=== PATIENT | female | born 1955 | race Caucasian/White ===

== ENCOUNTER 2022-09-01 11:17 | Observation (INO) | payer MEDICARE, BC, SELFPAY ==
[2022-09-01] VITALS (14 sets, daily range): BP systolic 103–154; BP diastolic 66–98; PULSE 50–67; RESP 12–24; TEMP 36.4–36.6; O2SAT 92–97; BMI 34.5; BMI 35.7
--- NOTE | 2022-09-01 11:35 | CRLHL7_ITS ---
For Patients: As a result of the Cures Act, medical imaging exams and procedure reports are released immediately into your electronic medical record. You may view this report before your referring provider. If you have questions, please contact your health care provider. INDICATION: Fall, head injury TECHNIQUE: CT cervical spine without contrast. COMPARISON: None FINDINGS: Vertebrae: Alignment is normal. There are no fractures or suspicious bony lesions. Discs and facet joints: Disc space narrowing and spurring C5-6 and C6-7. Facet degeneration on the left at C7-T1. Extraspinal findings: Prevertebral soft tissues, visualized airway, and visualized lungs are unremarkable. IMPRESSION: No cervical spine fracture. Please note that all CT scans at this facility use dose modulation, iterative reconstruction, and/or weight-based dosing when appropriate to reduce radiation dose to as low as reasonably achievable. Dictated by Toño Grimes MD @ 09/01/2022 12:09:24 PM (Electronically Signed)
--- NOTE | 2022-09-01 11:35 | CRLHL7_ITS ---
For Patients: As a result of the Century Cures Act, medical imaging exams and procedure reports are released immediately into your electronic medical record. You may view this report before your referring provider. If you have questions, please contact your health care provider. INDICATION: FALL, HEAD INJURY COMPARISON: none TECHNIQUE: A CT volumetric acquisition was performed of the brain without IV contrast. Please note that all CT scans at this facility use dose modulation, iterative reconstruction, and/or weight-based dosing when appropriate to reduce radiation dose to as low as reasonably achievable. FINDINGS: The CT images reveal a normal appearance of the cerebral ventricles and basal cisterns. There is no evidence of intracranial hemorrhage, tissue infarction or mass effect. The mastoid air cells and middle ear cavities are clear. The calvarium appears intact. There is normal aeration of the visualized paranasal sinuses. IMPRESSION: Negative head CT. Please note that all CT scans at this facility use dose modulation, iterative reconstruction, and/or weight-based dosing when appropriate to reduce radiation dose to as low as reasonably achievable. Dictated by Toño Grimes MD @ 09/01/2022 12:06:05 PM (Electronically Signed)
--- NOTE | 2022-09-01 12:02 | ED_ITS ---
HPI - Head Injury General Date Seen: 09/01/22 Chief complaint: Head Injury/Pain Stated complaint: Fall/weakness Time Seen by Provider: 09/01/22 11:29 Source: patient Mode of arrival: ambulatory Limitations: no limitations History of Present Illness HPI Narrative: Patient is delightful 66-year-old female who presents here for evaluation of a fall, she had loss of consciousness when she went from the kitchen into the cooler at [employer] , she turned her head felt the room was closing in getting dark, next thing know she woke up on the floor. She is only there for a couple seconds, she had people with her. No jerking motions, do not feel or heart racing there is no chest pain, and she has had this happen to her before, urine her physician are currently doing a workup for this. She has had previous neuro imaging with no findings. She currently feels well maybe a little bit nauseous when she moves her head, no real headache associated with this, and she cannot feel bump on her head. Denies any chest pain shortness of breath fevers chills or sweats and felt well before this. 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 Complaint: head injury and fall Onset (ago): minute(s) Mechanism of Injury: work related injury Place: work Loss of Consciousness: yes and unsure Location of injury: frontal and parietal Severity: mild Radiation: none Other Injuries: none Associated symptoms: denies other symptoms Related Data Home Medications Medication Instructions Recorded Confirmed amlodipine 10 mg tablet mg 09/01/22 cyanocobalamin (vitamin B-12) mcg 09/01/22 1,000 mcg/mL injection solution lisinopril 10 mg tablet mg 09/01/22 sertraline 100 mg tablet mg 09/01/22 Review of Systems Status of ROS: Reports: 10 or more systems reviewed and unremarkable except as noted in History and below PFSH PFS Social History Smoking Status: Never smoker Do you use any of these nicotine containing products: None Second hand tobacco smoke exposure: No How often do you have a drink containing alcohol: never How often do you have six or more drinks on one occasion: Never AUDIT-C Alcohol total score: 0 Non-prescribed substance use: denies use service: No Exam Narrative: Exam Narrative: Patient is peaking normally, problem with slurring words, oriented x3. Head eyes ears nose and throat exam show equal pupils, no scleral icterus, extraocular muscles are normal, no facial droop, speech is normal, trachea normal and midline. Thyroid normal midline palpable not enlarged. Chest shows symmetrical rise bilaterally, normal auscultation with no wheezes, no increased work of breathing, no overt bruising or lesions seen, no tenderness is noted on auscultation. Heart sounds normal with no S3-S4 no murmurs clicks or gallops. Abdomen shows no obvious masses or hepatosplenomegaly, no organomegaly, bowel sounds are normal in all quadrants. No tenderness is noted also in all quadrants. Upper and lower extremities show normal power, normal range of motion, pulses are normal, sensations normal, fine motor movements are normal, pelvis is stable to rocking. Cervical spine shows normal range of motion, and palpably not tender. Thoracic spine shows normal range of motion, and palpably not tender, lumbar spine shows no tenderness to palpation percussion and is otherwise normal range of motion. Skin shows no rashes, petechiae or eccymosis. Const: Vital Signs, click to edit/add: Vital Signs - 24 hr 09/01/22 11:22 09/01/22 11:30 Temperature 97.5 F L Pulse Rate [Right Pulse Oximeter] 63 60 Respiratory Rate 18 18 Blood Pressure [Ri ght Upper Arm] 139/74 130/82 Pulse Oximetry 97 96 Oxygen Delivery Me thod Room Air Room Air Course Course Hospital Course: Second troponin was 0.03, this prompted a call consultation with from [facility], he suggested chest CT, to exclude pulmonary embolism, admission overnight, and echo in the morning given the history of syncope, if the troponin keeps rising then he would ask us to call them back, but he thinks, that it probably will stabilize. I discussed this with the patient and her son, and also the inpatient physician who accepted her. Vital Signs Vital signs: Initial Vital Signs Temperature 97.5 F L 09/01/22 11:22 Temperature Source Temporal Artery Scan 09/01/22 11:22 Pulse Rate 63 09/01/22 11:22 Respiratory Rate 18 09/01/22 11:22 Blood Pressure 139/74 09/01/22 11:22 Blood Pressure Mean 95 09/01/22 11:22 Blood Pressure Position Sitting 09/01/22 11:22 Pulse Oximetry 97 09/01/22 11:22 Oxygen Delivery Method 09/01/22 11:22 Vital Signs Temperature 97.5 F L 09/01/22 11:22 Pulse Rate 63 09/01/22 11:22 Respiratory Rate 18 09/01/22 11:22 Blood Pressure 139/74 09/01/22 11:22 Pulse Oximetry 97 09/01/22 11:22 Oxygen Delivery Method 09/01/22 11:22 Temperature 97.5 F L 09/01/22 11:22 Pulse Rate 60 09/01/22 11:30 Respiratory Rate 18 09/01/22 11:30 Blood Pressure 130/82 09/01/22 11:30 Pulse Oximetry 96 09/01/22 11:30 Oxygen Delivery Method 09/01/22 11:30 MDM - Head Injury MDM Narrative Medical decision making narrative: Life-threatening differential diagnosis is considered include: Subarachnoid hemorrhage, subdural hemorrhage, epidural hemorrhage. Other differential diagnosis considered include concussion, closed head injury, or neck fracture. Medical Records Attestation: I reviewed the patient's medical records. Lab Data Attestation: I reviewed the patient's lab results. Labs: Lab Results 09/01/22 09/01/22 09/01/22 Range/Units 12:15 12:24 12:24 WBC 4.62 (4.50-11.00) K/uL RBC 3.95 L (4.00-5.20) m/uL Hgb 12.2 (12.0-16.0) gm/dL Hct 36.9 (33.0-51.0) % MCV 93 (80-100) fL MCH 31 (26-34) pg MCHC 33 (32-36) gm/dL RDW Coeff of Robert 12.8 (11.5-15.5) % Plt Count 216 (140-440) K/uL Neut % (Auto) 76.2 H (42.0-72.0) % Lymph % (Auto) 15.4 L (20-44) % [place] % (Auto) 6.5 (0.0-11.0) % Eos % (Auto) 1.5 (0.0-7.0) % Baso % (Auto) 0.2 (0.0-3.0) % Neut # (Auto) 3.50 (1.7-7.0) K/uL Lymph # (Auto) 0.70 L (0.90-2.90) K/uL [place] # (Auto) 0.30 (0.00-0.90) K/UL Eos # (Auto) 0.07 (0.00-0.50) K/uL Baso # (Auto) 0.01 (0.00-0.30) K/uL Abs Immat Gran (auto) 0.01 (0.00-0.30) K/uL Imm/Tot Granulo (auto) 0.2 % D-Dimer Quant (PE/DVT) 0.66 H (0.00-0.50) ug/ml Sodium (135-149) mmol/L Potassium (3.6-5.1) mmol/L Chloride (96-114) mmol/L Carbon Dioxide (20-32) mmol/L BUN (7-30) mg/dL Creatinine (0.5-1.5) mg/dL Estimated Creat Clear Estimated GFR ml/min Glucose (60-115) mg/dL Calcium (8.4-10.6) mg/dL SARS-CoV-2 (PCR) Negative SARS-CoV-2 (Negative) Influenza Type A (PCR) Negative PCR FLU A (Negative) Influenza Type B (PCR) Negative PCR FLU B (Negative) RSV (PCR) Negative PCR RSV (Negative) POC Troponin I (0.01-0.04) ng/ml 09/01/22 09/01/22 09/01/22 Range/Units 12:24 12:24 14:35 WBC (4.50-11.00) K/uL RBC (4.00-5.20) m/uL Hgb (12.0-16.0) gm/dL Hct (33.0-51.0) % MCV (80-100) fL MCH (26-34) pg MCHC (32-36) gm/dL RDW Coeff of Robert (11.5-15.5) % Plt Count (140-440) K/uL Neut % (Auto) (42.0-72.0) % Lymph % (Auto) (20-44) % [place] % (Auto) (0.0-11.0) % Eos % (Auto) (0.0-7.0) % Baso % (Auto) (0.0-3.0) % Neut # (Auto) (1.7-7.0) K/uL Lymph # (Auto) (0.90-2.90) K/uL [place] # (Auto) (0.00-0.90) K/UL Eos # (Auto) (0.00-0.50) K/uL Baso # (Auto) (0.00-0.30) K/uL Abs Immat Gran (auto) (0.00-0.30) K/uL Imm/Tot Granulo (auto) % D-Dimer Quant (PE/DVT) (0.00-0.50) ug/ml Sodium 139 (135-149) mmol/L Potassium 4.7 (3.6-5.1) mmol/L Chloride 108 (96-114) mmol/L Carbon Dioxide 25 (20-32) mmol/L BUN 28 (7-30) mg/dL Creatinine 0.8 (0.5-1.5) mg/dL Estimated Creat Clear 47.79 Estimated GFR 81 ml/min Glucose 98 (60-115) mg/dL Calcium 9.7 (8.4-10.6) mg/dL SARS-CoV-2 (PCR) (Negative) Influenza Type A (PCR) (Negative) Influenza Type B (PCR) (Negative) RSV (PCR) (Negative) POC Troponin I 0.00 L 0.03 (0.01-0.04) ng/ml Imaging Data Chest x-ray: Attestation: I have reviewed the pertinent imaging results. My impression: Negative acute Radiologist's impression: Negative acute ECG Data Attestation: I personally reviewed and interpreted this ECG as follows: ECG interpretation date: 09/01/22 Interpretation: EKG showed normal sinus rhythm, there is some ST wave flattening inferiorly and laterally, which may be a normal variant otherwise no acute ST wave changes Follow-up EKG shows normal sinus rhythm, no acute ST wave changes are noted, ventricular rate 61 Discharge Plan Discharge Clinical Impression: Closed head injury, Syncope Patient Disposition: Admitted As Inpatient Prescriptions: No Action sertraline 100 mg tablet Label Comments: TAKE ONE TABLET BY MOUTH EVERY DAY amlodipine 10 mg tablet Label Comments: TAKE ONE TABLET BY MOUTH EVERY DAY cyanocobalamin (vitamin B-12) 1,000 mcg/mL solution Label Comments: INJECT 1ML INTRAMUSCULARLY EVERY 4 WEEKS. lisinopril 10 mg tablet Label Comments: TAKE ONE TABLET BY MOUTH EVERY DAY Follow Up/Referrals: Provider,Not a Local [Referring] -
[2022-09-01 12:36] LABS: Basophils Absolute Auto 0.01 K/uL (0.00-0.30); Basophils Percent Auto 0.2 % (0.0-3.0); Eosinophils Absolute Auto 0.07 K/uL (0.00-0.50); Eosinophils Percent Auto 1.5 % (0.0-7.0); Hematocrit 36.9 % (33.0-51.0); Hemoglobin* 12.2 gm/dL (12.0-16.0); Immature Granulocytes Abs Auto 0.01 K/uL (0.00-0.30); Immature Granulocytes Pct Auto 0.2 %; Lymphocytes Percent Auto 15.4 % (20-44); Mean Corpuscular HGB Conc 33 gm/dL (32-36); Mean Corpuscular Hemoglobin 31 pg (26-34); Mean Corpuscular Volume 93 fL (80-100); Monocytes Percent Auto 6.5 % (0.0-11.0); Neutrophils Percent Auto 76.2 % (42.0-72.0); Platelet Count* 216 K/uL (140-440); RDW Coefficient of Variation % 12.8 % (11.5-15.5); Red Blood Count 3.95 m/uL (4.00-5.20); White Blood Count* 4.62 K/uL (4.50-11.00)
[2022-09-01 12:37] LABS: Slide Review Reflex No
[2022-09-01 12:55] LABS: Chloride* 108 mmol/L (96-114); Potassium* 4.7 mmol/L (3.6-5.1); Sodium* 139 mmol/L (135-149)
[2022-09-01 12:58] LABS: Blood Urea Nitrogen* 28 mg/dL (7-30); Calcium* 9.7 mg/dL (8.4-10.6); Carbon Dioxide* 25 mmol/L (20-32); Creatinine* 0.8 mg/dL (0.5-1.5); D Dimer Quantitative* 0.66 ug/ml (0.00-0.50); Est. Creatinine Clearance* 47.79; Estimated Glomerular Filt Rate 81 ml/min; Glucose* 98 mg/dL (60-115)
[2022-09-01 13:00] LABS: PCR FLU A Negative PCR FLU A (Negative); PCR FLU B Negative PCR FLU B (Negative); PCR RSV Negative PCR RSV (Negative)
[2022-09-01 13:47] LABS: SARS PCR* Negative SARS-CoV-2 (Negative)
[2022-09-01 15:05] LABS: Troponin, Point-of-Care* 0.03 ng/ml (0.01-0.04)
--- NOTE | 2022-09-01 15:27 | CRLHL7_ITS ---
For Patients: As a result of the Century Cures Act, medical imaging exams and procedure reports are released immediately into your electronic medical record. You may view this report before your referring provider. If you have questions, please contact your health care provider. INDICATION: Syncope. TECHNIQUE: CT chest PE was acquired with 100 cc Omnipaque 350 IV contrast. COMPARISON: None. FINDINGS: Heart and vasculature: Contrast opacification of the pulmonary arterial tree is adequate. No sign of pulmonary embolism. Heart size is normal. Thoracic aorta and pulmonary artery are normal in caliber. Lungs and pleura: The lungs are clear. No pleural effusion or pneumothorax. No suspicious nodule. Lymph nodes/mediastinum: No mediastinal, hilar, or axillary adenopathy. Chest wall: No masses. 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 Gastric bypass postsurgical changes. Bones: Unremarkable for age. IMPRESSION: No pulmonary embolism. No acute findings within the chest. 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 Please note that all CT scans at this facility use dose modulation, iterative reconstruction, and/or weight-based dosing when appropriate to reduce radiation dose to as low as reasonably achievable. Dictated by Kevin King MD @ 09/01/2022 4:48:08 PM (Electronically Signed)
[2022-09-01] MEDS: 0.9 % SODIUM CHLORIDE 1000 ml 1,000 ML IV ×2 (15:38→16:32)
[2022-09-01] MEDS: ACETAMINOPHEN 500 MG TABLET 1000 MG PO ×2 (15:42→20:31)
--- NOTE | 2022-09-01 16:58 | ED.NURSE ---
report to riley neal will go to [phone].
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
[2022-09-01 20:27] LABS: Troponin I* < 0.01 ng/mL (0.01-0.04)
--- NOTE | 2022-09-01 22:37 | PC.NURSE ---
Shift [id number]- Patient arrives to unit at approximately 1715. She admits to feeling dizzy/lightheaded intermittently, particularly with standing or sitting, though as she lies down, it subsides. She is up with SBA. She denies SOB or chest pain. She also states she has a headache- tylenol given- see eMAR. She appears restful this evening.
[2022-09-02] VITALS (12 sets, daily range): BP systolic 111–138; BP diastolic 68–96; PULSE 58–70; RESP 16–18; TEMP 36.6–36.9; O2SAT 91–98
--- NOTE | 2022-09-02 05:38 | PC.NURSE ---
Shift note: Pt is on observation, no headache or any neurological s/s related to the head injury observed. V/S WNL.Assist of 1 with walker and GB.
[2022-09-02] MEDS: ACETAMINOPHEN 500 MG TABLET 1000 MG PO ×3 (07:55→23:07)
[2022-09-02 08:51] LABS: Troponin I* < 0.01 ng/mL (0.01-0.04)
[2022-09-02] MEDS: ASPIRIN 81 MG TAB.CHEW PO (09:05)
[2022-09-02] MEDS: buPROPion XL 150 MG TABLET PO (09:05)
[2022-09-02] MEDS: lisinopriL 10 MG TABLET PO (09:06)
[2022-09-02] MEDS: SERTRALINE 100 MG TABLET PO (09:06)
[2022-09-02] MEDS: MULTIVITAMIN/MINERALS 1 TABLET 1 TAB PO (09:06)
[2022-09-02] MEDS: PROPRANOLOL 20 MG TABLET 40 MG PO (09:06)
[2022-09-02] MEDS: AMLODIPINE 10 MG TABLET PO (09:07)
--- NOTE | 2022-09-02 09:20 | CRLHL7_ITS ---
For Patients: As a result of the Century Cures Act, medical imaging exams and procedure reports are released immediately into your electronic medical record. You may view this report before your referring provider. If you have questions, please contact your health care provider. Indication: ataxia, head injury Technique: Noncontrast sagittal T1 weighted, axial T2 fast spin echo, FLAIR, SWI, and diffusion weighted images of the head. Comparison: CT 09/01/2022 Findings: Multiple scattered patchy foci of increased T2 signal in the subcortical white matter of both cerebral hemispheres. A punctate focus of susceptibility artifact in the right shena cruzito is nonspecific but may represent remote microhemorrhage. The ventricles, sulci and gyri are of normal size, shape and contour for age and degree of atrophy. No regions of restricted diffusion. Midline structures are centrally located. No convincing evidence of suspicious intra- or extra-axial fluid collections. Moderate right and mild left mastoid effusion. The orbits are unremarkable. Expected intracranial vascular flow voids are preserved. Findings discussed with Dr. Leon at 1:15 p.m. Impression: 1. No radiographic evidence of acute intracranial abnormalities. 2. Mild supratentorial white matter changes are non-specific but statistically most likely related to small vessel ischemic disease. 3. A punctate focus of susceptibility artifact in the right shena cruzito, without associated edema, is nonspecific and may represent a remote microhemorrhage. 4. Moderate right and mild left mastoid effusion. Dictated by Toño Severino MD @ 09/02/2022 1:16:11 PM (Electronically Signed)
--- NOTE | 2022-09-02 12:29 | P.IMPN_ITS ---
Progress Note: A&P Assessment and plan (1) Concussion: Problem details: I favor sequela of concussion as the primary cause for her persisting imbalance. Check MRI of the brain. PT and OT to evaluate. Status: Acute (2) Dizziness: Problem details: Appears to be a new problem. Probably due to concussion. Continue to evaluate. PT and OT. Status: Acute (3) Imbalance: Problem details: Sequela of concussion? Status: Acute (4) Hypertension: Problem details: Continue to cautiously taper blood pressure medications. At this point I doubt that hypotension is the cause of her spells and dizziness. Status: Acute (5) Nonspecific paroxysmal spell: Problem details: Problem present for almost a year with spells of profound weakness and diaphoresis. Cause for this is uncertain. She did not have the symptoms prior to her fall yesterday. Probably unrelated. Status: Acute Plan Obtain brain MRI. PT and OT to continue evaluate. Pending MRI will treat this as sequelae of concussion. Time Spent With Patient Total time spent: Total time spent today is 40 minutes, 30 minutes in coordination of care discussing with patient and other providers management of imbalance and head injury Subjective Date Seen: 09/02/22 Interval history: 66-year-old female admitted to the hospital for evaluation of dizziness, fall, head injury. Brief history: Patient reported she was generally doing well yesterday though she did report when she woke up she was feeling sluggish. 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 She was standing in a walk-in cooler and when she turned around she got dizzy and fell. She was lying on the floor unable to get up. She is brought here for evaluation. She had CT of the head and neck as well as chest which were unremarkable. Initial concern over syncope. Patient does not think she lost consciousness. She does report however today that she has persistent feeling of being unsteady on her feet. She reports not having any other recent illness other than feeling a little sluggish yesterday. She tells me today she has a little nausea. She has had no vomiting. No abdominal pain. She reports an adequate appetite. No bowel problems recently. Earlier this summer she did have anemia with rectal bleeding and had colonoscopy which was normal. She has had occasional episodes as an outpatient over the last 11 months where she has felt very weak and sweaty for a period of time this resolves spontaneously but she finds she has to lay down when this happens. She has had outpatient evaluation tests for evaluation of this including thyroid tests and cardiac monitoring. She has also been noted to be somewhat hypotensive and has had her blood pressure medicines decreased over this period of time. Exam Narrative: Exam Narrative: She is alert and pleasant and appears in no distress. Head is normal. Eyes normal. Oropharynx normal. No facial asymmetry. Respirations are clear to a uscultation. Cardiovascular: S1, S2, regular rate and rhythm. No murmur gallop or rub. Abdomen: Bowel sounds active. Abdomen is soft without tenderness or mass. Extremities are normal. She has no edema. Strength in all 4 extremities is 5/5 including finger extension, chemical tester strength, wrist and elbow flexion and extension and shoulder flexion and extension. Hip flexion, knee flexion and extension, ankle dorsiflexion and plantar flexion bilaterally also 5/5. [id number] is normal. No pronator drift. She is unable to stand with her feet together and eyes closed without tipping over. Const: Vital Signs, click to edit/add: Vital Signs - 24 hr 09/01/22 17:23 09/01/22 17:23 09/01/22 12:30 Temperature 97.8 F Pulse Rate Pulse Rate [Left P ulse Oximeter] Pulse Rate [Right Pulse Oximeter] 64 Pulse Rate [orthos tatic lying] 61 Pulse Rate [orthos tatic sitting] 67 Pulse Rate [orthos tatic standing] 58 L Respiratory Rate 18 18 Blood Pressure [Le ft Arm] Blood Pressure [Ri ght Upper Arm] 128/77 Blood Pressure [or thostatic lying] 144/98 H Blood Pressure [or thostatic sitting] 144/91 H Blood Pressure [or thostatic standing ] 154/84 H Pulse Oximetry 97 96 Oxygen Delivery Me thod Room Air Room Air 09/01/22 17:00 09/01/22 13:30 09/01/22 14:00 Temperature Pulse Rate Pulse Rate [Left P ulse Oximeter] Pulse Rate [Right Pulse Oximeter] 63 57 L 60 Pulse Rate [orthos tatic lying] Pulse Rate [orthos tatic sitting] Pulse Rate [orthos tatic standing] Respiratory Rate 19 20 Blood Pressure [Le ft Arm] Blood Pressure [Ri ght Upper Arm] 120/66 105/85 108/81 Blood Pressure [or thostatic lying] Blood Pressure [or thostatic sitting] Blood Pressure [or thostatic standing ] Pulse Oximetry 92 93 95 Oxygen Delivery Md thod Room Air Room Air Room Air 09/01/22 14:32 09/01/22 15:00 09/01/22 15:30 Temperature Pulse Rate Pulse Rate [Left P ulse Oximeter] Pulse Rate [Right Pulse Oximeter] 59 L 59 L Pulse Rate [orthos tatic lying] Pulse Rate [orthos tatic sitting] Pulse Rate [orthos tatic standing] Respiratory Rate 20 Blood Pressure [Le ft Arm] Blood Pressure [Ri ght Upper Arm] 103/72 124/90 H Blood Pressure [or thostatic lying] Blood Pressure [or thostatic sitting] Blood Pressure [or thostatic standing ] Pulse Oximetry [facility] 09/01/22 16:30 09/01/22 19:51 09/01/22 23:00 Temperature Pulse Rate 63 50 L Pulse Rate [Left P ulse Oximeter] Pulse Rate [Right Pulse Oximeter] 57 L Pulse Rate [orthos tatic lying] Pulse Rate [orthos tatic sitting] Pulse Rate [orthos tatic standing] Respiratory Rate 24 Blood Pressure [Le ft Arm] Blood Pressure [Ri ght Upper Arm] 128/73 Blood Pressure [or thostatic lying] Blood Pressure [or thostatic sitting] Blood Pressure [or thostatic standing ] Pulse Oximetry 94 [facility] 09/01/22 23:00 09/02/22 03:00 09/02/22 08:43 Temperature 98 F 98.1 F Pulse Rate 70 Pulse Rate [Left P ulse Oximeter] 57 L 58 L Pulse Rate [Right Pulse Oximeter] Pulse Rate [orthos tatic lying] Pulse Rate [orthos tatic sitting] Pulse Rate [orthos tatic standing] Respiratory Rate 18 18 Blood Pressure [Le ft Arm] 115/79 111/70 Blood Pressure [Ri ght Upper Arm] Blood Pressure [or thostatic lying] Blood Pressure [or thostatic sitting] Blood Pressure [or thostatic standing ] Pulse Oximetry 94 97 [facility] Room Air 09/02/22 09:39 09/02/22 08:00 Temperature 97.9 F Pulse Rate Pulse Rate [Left P ulse Oximeter] 60 Pulse Rate [Right Pulse Oximeter] Pulse Rate [orthos tatic lying] 64 Pulse Rate [orthos tatic sitting] 64 Pulse Rate [orthos tatic standing] 69 Respiratory Rate 16 Blood Pressure [Le ft Arm] 133/91 H Blood Pressure [Ri ght Upper Arm] Blood Pressure [or thostatic lying] 122/75 Blood Pressure [or thostatic sitting] 136/72 Blood Pressure [or thostatic standing ] 133/96 H Pulse Oximetry 98 Oxygen Delivery Me thod Room Air Labs Labs: Laboratory Results - last 24 hr 09/01/22 09/01/22 09/01/22 12:15 12:24 12:24 WBC 4.62 RBC 3.95 L Hgb 12.2 Hct 36.9 MCV 93 MCH 31 MCHC 33 RDW Coeff of Robert 12.8 Plt Count 216 Neut % (Auto) 76.2 H Lymph % (Auto) 15.4 L [place] % (Auto) 6.5 Eos % (Auto) 1.5 Baso % (Auto) 0.2 Neut # (Auto) 3.50 Lymph # (Auto) 0.70 L [place] # (Auto) 0.30 Eos # (Auto) 0.07 Baso # (Auto) 0.01 Abs Immat Gran (auto) 0.01 Imm/Tot Granulo (auto) 0.2 D-Dimer Quant (PE/DVT) 0.66 H Sodium Potassium Chloride Carbon Dioxide BUN Creatinine Estimated Creat Clear Estimated GFR Glucose Calcium Troponin I SARS-CoV-2 (PCR) Negative SARS-CoV-2 Influenza Type A (PCR) Negative PCR FLU A Influenza Type B (PCR) Negative PCR FLU B RSV (PCR) Negative PCR RSV POC Troponin I 09/01/22 09/01/22 09/01/22 12:24 12:24 14:35 WBC RBC Hgb Hct MCV MCH MCHC RDW Coeff of Robert Plt Count Neut % (Auto) Lymph % (Auto) [place] % (Auto) Eos % (Auto) Baso % (Auto) Neut # (Auto) Lymph # (Auto) [place] # (Auto) Eos # (Auto) Baso # (Auto) Abs Immat Gran (auto) Imm/Tot Granulo (auto) D-Dimer Quant (PE/DVT) Sodium 139 Potassium 4.7 Chloride 108 Carbon Dioxide 25 BUN 28 Creatinine 0.8 Estimated Creat Clear 47.79 Estimated GFR 81 Glucose 98 Calcium 9.7 Troponin I SARS-CoV-2 (PCR) Influenza Type A (PCR) Influenza Type B (PCR) RSV (PCR) POC Troponin I 0.00 L 0.03 09/01/22 09/02/22 19:47 08:07 WBC RBC Hgb Hct MCV MCH MCHC RDW Coeff of Robert Plt Count Neut % (Auto) Lymph % (Auto) [place] % (Auto) Eos % (Auto) Baso % (Auto) Neut # (Auto) Lymph # (Auto) [place] # (Auto) Eos # (Auto) Baso # (Auto) Abs Immat Gran (auto) Imm/Tot Granulo (auto) D-Dimer Quant (PE/DVT) Sodium Potassium Chloride Carbon Dioxide BUN Creatinine Estimated Creat Clear Estimated GFR Glucose Calcium Troponin I < 0.01 L < 0.01 L SARS-CoV-2 (PCR) Influenza Type A (PCR) Influenza Type B (PCR) RSV (PCR) POC Troponin I
--- NOTE | 2022-09-02 15:41 | PC.NURSE ---
Pt eval by Dr. Henry. She c/o headache from right back upper region of her head which radiates around to right frontal lobe. Pt has rated the pain 5-6 out of 10, RN treated this sx with Tylenol 1000mg PO given twice on day shift. Pt eval by OT and PT. Elzbieta c/o light headed, dizzy sensation when I get up. Up with SBA, GB and walker. Tele indicates NSR. MRI screening form completed and MRI of brain completed. Please see eMar for scheduled medications. Pt calm and cooperative with nsg interventions. Late lunch tray. Eupneic and in NAD. Report to Crystal ALEXIS for evening shift.
--- NOTE | 2022-09-02 21:17 | PC.NURSE ---
Shift Summary: Patient pleasant and cooperative. Up with one assist, walker and gait belt. Patients IV bloody/leaking this evening, was removed with catheter tip intact, updated and ok to keep IV out. Patient C/o headache earlier, some relief with tylenol. States she still feels dizzy with ambulation, gait stable, no episode of syncope/near syncope. Ambulates with one assist, walker and gait belt. Tolerating regular diet, denies nausea.
[2022-09-03 02:10] VITALS: BP 112/59; PULSE 92; RESP 16; TEMP 36.9; O2SAT 98
[2022-09-03 02:56] VITALS: TEMP 36.9
--- NOTE | 2022-09-03 04:28 | PC.NURSE ---
Pt is now stable on feet and can be Independent in room. No more feelings of dizziness. Headache went away after Tylenol given. VS and Neuroes unremarkable.
[2022-09-03 07:00] VITALS: BP 109/73; PULSE 69; PULSE 77; RESP 20; TEMP 36.5; O2SAT 96
[2022-09-03] MEDS: ASPIRIN 81 MG TAB.CHEW PO (09:26)
[2022-09-03] MEDS: AMLODIPINE 10 MG TABLET 5 MG PO (09:26)
[2022-09-03] MEDS: SERTRALINE 100 MG TABLET PO (09:26)
[2022-09-03] MEDS: MULTIVITAMIN/MINERALS 1 TABLET 1 TAB PO (09:26)
[2022-09-03] MEDS: PROPRANOLOL 20 MG TABLET 40 MG PO (09:26)
[2022-09-03] MEDS: lisinopriL 10 MG TABLET PO (09:26)
[2022-09-03] MEDS: buPROPion XL 150 MG TABLET PO (09:27)
[2022-09-03 11:00] VITALS: BP 106/59; PULSE 78; RESP 20; TEMP 37; O2SAT 98
--- NOTE | 2022-09-03 14:28 | PM.DS1 ---
DS: Providers Provider Date Seen: 09/03/22 Date of admission: 09/01/22 16:26 Primary care physician: ELLIE Koroma Admitting Clinician: Hattie Merino MD Consults: 09/01/22 19:28 Consult to Occupational Therapy [CONS] Routine Comment: Reason(s) for OT Consult:: Evaluate and Treat Any Restrictions?:: No Restrictions Consult to Physical Therapy [CONS] Routine Comment: Reason(s) for PT Consult:: Evaluate and Treat Any Restrictions?:: No Restrictions 09/02/22 09:25 Consult to Physical Therapy [CONS] Routine Comment: Reason(s) for PT Consult:: Evaluate and Treat Any Restrictions?:: No Restrictions Attending Physician on discharge: Derek Severino MD Date of Discharge: 09/03/22 DS: Diagnosis Discharge Diagnosis (1) Syncope: Status: Acute (2) Concussion: Status: Acute Problem details: I favor sequela of concussion as the primary cause for her persisting imbalance. Check MRI of the brain. PT and OT to evaluate. (3) Dizziness: Status: Acute Problem details: Appears to be a new problem. Probably due to concussion. Continue to evaluate. PT and OT. (4) Nonspecific paroxysmal spell: Status: Acute Problem details: Problem present for almost a year with spells of profound weakness and diaphoresis. Cause for this is uncertain. She did not have the symptoms prior to her fall yesterday. Probably unrelated. (5) Hypertension: Status: Acute Problem details: Continue to cautiously taper blood pressure medications. At this point I doubt that hypotension is the cause of her spells and dizziness. (6) Imbalance: Status: Acute Problem details: Sequela of concussion? 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 Brief history:? Patient reported she was generally doing well yesterday though she did report when she woke up she was feeling sluggish.? 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 She was standing in a walk-in cooler and when she turned around she got dizzy and fell.? She was lying on the floor unable to get up.? She is brought here for evaluation.? She had CT of the head and neck as well as chest which were unremarkable.? Initial concern over syncope.? Patient does not think she lost consciousness.? She does report however today that she has persistent feeling of being unsteady on her feet.? She reports not having any other recent illness other than feeling a little sluggish yesterday.? She tells me today she has a little nausea.? She has had no vomiting.? No abdominal pain.? She reports an adequate appetite.? No bowel problems recently.? Earlier this summer she did have anemia with rectal bleeding and had colonoscopy which was normal.? She has had occasional episodes as an outpatient over the last 11 months where she has felt very weak and sweaty for a period of time this resolves spontaneously but she finds she has to lay down when this happens.? She has had outpatient evaluation tests for evaluation of this including thyroid tests and cardiac monitoring.? She has also been noted to be somewhat hypotensive and has had her blood pressure medicines decreased over this period of time. HOSPITAL COURSE CT PE study negative; MRI Brain No radiographic evidence of acute intracranial abnormalities. CT head no acute findings. Echo has been ordered I have stopped her norvasc. Her dizziness and lightheadedness have improved and resolved. She will need close outpatient follow up 3-5 days for BP monitoring. 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 This will need outpatient follow up/monitoring. Echo Normal LVEF 74% Normal RV size/function mild aortic regurg ascending aorta is dilated with maximal diameter 4.1cm-->will need outpatient monitoring; serial echos MRI BRAIN Impression: 1. No radiographic evidence of acute intracranial abnormalities. 2. Mild supratentorial white matter changes are non-specific but statistically most likely related to small vessel ischemic disease. 3. A punctate focus of susceptibility artifact in the right shena cruzito, without associated edema, is nonspecific and may represent a remote microhemorrhage. 4. Moderate right and mild left mastoid effusion. CT PE IMPRESSION: No pulmonary embolism. No acute findings within the chest. 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 CT HEAD Echo Normal LVEF 74% Normal RV size/function mild aortic regurg ascending aorta is dilated with maximal diameter 4.1cm Time Spent with Patient Time attestation: Total time spent providing and/or coordinating discharge services: Time spent: Greater than 30 minutes Exam Narrative: Exam Narrative: Gen: No acute distress HEENT: NCAT EOMI MMM CV: RRR s1 s2 lctab abd; soft, nt, nd neuro: AOx3, nonfocal screening exam Const: Vital Signs, click to edit/add: Vital Signs - 24 hr 09/02/22 16:00 09/02/22 16:32 09/02/22 19:27 Temperature 97.8 F 98.2 F Pulse Rate 59 L Pulse Rate [Left P ulse Oximeter] 65 60 Respiratory Rate 16 16 Blood Pressure [Le ft Arm] 120/81 138/74 Pulse Oximetry 91 94 Oxygen Delivery Me thod Room Air Room Air 09/02/22 23:07 09/02/22 23:50 09/02/22 23:51 Temperature 98.0 F 98.2 F Pulse Rate 64 Pulse Rate [Left P ulse Oximeter] 64 Respiratory Rate 16 Blood Pressure [Le ft Arm] 116/84 Pulse Oximetry 98 Oxygen Delivery Me thod Room Air 09/02/22 23:55 09/03/22 02:10 09/03/22 02:56 Temperature 98.4 F 98.4 F Pulse Rate Pulse Rate [Left P ulse Oximeter] 64 92 Respiratory Rate 16 16 Blood Pressure [Le ft Arm] 112/59 L Pulse Oximetry 98 Oxygen Delivery Me thod Room Air 09/03/22 07:00 09/03/22 07:00 09/03/22 07:00 Temperature 97.7 F Pulse Rate 69 Pulse Rate [Left P ulse Oximeter] 77 77 Respiratory Rate 20 20 Blood Pressure [Le ft Arm] 109/73 Pulse Oximetry 96 Oxygen Delivery Me thod Room Air 09/03/22 11:00 Temperature 98.6 F Pulse Rate Pulse Rate [Left P ulse Oximeter] 78 Respiratory Rate 20 Blood Pressure [Le ft Arm] 106/59 L Pulse Oximetry 98 Oxygen Delivery Me thod Room Air Discharge Plan Discharge Disposition: Home, Self-Care Date of Admission: 09/01/22 16:26 Attending Provider on Discharge: Derek Severino Primary Care Provider: Kayla Franco Condition: Improved Anticipated Discharge Date/Time: 09/03/22 17:00 Discharge Medications: Continued sertraline 100 mg tablet 100 mg PO DAILY Label Comments: TAKE ONE TABLET BY MOUTH EVERY DAY cyanocobalamin (vitamin B-12) 1,000 mcg/mL solution 1,000 mcg IM .MONTHLY Label Comments: INJECT 1ML INTRAMUSCULARLY EVERY 4 WEEKS. lisinopril 10 mg tablet 10 mg PO DAILY Label Comments: TAKE ONE TABLET BY MOUTH EVERY DAY propranolol 40 mg tablet 40 mg PO DAILY acetaminophen 500 mg tablet 1,000 mg PO QID PRN multivitamin Tablet 1 tab PO DAILY bupropion HCl 150 mg tablet extended release 24 hr 150 mg PO DAILY Label Comments: TAKE ONE TABLET BY MOUTH EVERY MORNING aspirin [Aspirin Childrens] 81 mg tablet,chewable 81 mg PO DAILY Discontinued amlodipine 10 mg tablet 10 mg PO DAILY Label Comments: TAKE ONE TABLET BY MOUTH EVERY DAY Discharge Orders: Discharge Order (Routine); Ordered 09/03/22 Ordered By: Derek Severino Patient Education: Dizziness (GEN) Activity Level: Activity as Tolerated Discharge Diet: Other Diet Detail: Resume previous home diet Follow Up Appointments: Kayla Franco PA [Primary Care Provider] - 09/09/22 2:10 pm Forms: [employer] Info Instructions
== END 2022-09-03 16:30 | disposition home or self-care (01) ==
LOC: ED 15:51 → MEDSURG 16:28
PROVIDERS: Admitting Provider Family Medicine; Emergency Provider Family Medicine; PCP Physician Assistant; Visit Provider Family Medicine
DX: S06.0XAA Concussion with loss of consciousness status unknown, initial encounter (principal); R26.89 Other abnormalities of gait and mobility; I72.2 Aneurysm of renal artery; R42 Dizziness and giddiness; R55 Syncope and collapse; I10 Essential (primary) hypertension; R40.4 Transient alteration of awareness; Z86.39 Personal history of other endocrine, nutritional and metabolic disease; Z79.82 Long term (current) use of aspirin; Z98.890 Other specified postprocedural states; Z87.898 Personal history of other specified conditions; R11.0 Nausea
CPT/HCPCS: 36415; 70450; 70551; 71260; 72125; 80048; 84484; 85025; 85379; 87502; 87634; 87635; 93005; 93306; 96360; 96361; 97116; 97161; 97165; 99285; G0378; A9153; A9270; G0379; J7030; Q9967

== ENCOUNTER 2023-06-03 14:55 | Emergency (ER) | payer MEDICARE, BC, SELFPAY ==
[2023-06-03 15:02] VITALS: BP 97/64; PULSE 52; RESP 20; TEMP 36.7; O2SAT 100
--- NOTE | 2023-06-03 15:07 | CRLHL7_ITS ---
For Patients: As a result of the Cures Act, medical imaging exams and procedure reports are released immediately into your electronic medical record. You may view this report before your referring provider. If you have questions, please contact your health care provider. Indication: Fall on left wrist Technique: Three views left wrist Comparison: None Findings: Bones: There is an acute, intra-articular, comminuted fracture of the distal left radius with mild anterior dislocation of the fracture fragments. Joint spaces: Degenerative changes in the 1st CMC joint. Soft tissues: Soft tissue swelling around the wrist joint. Impression: Acute, intra-articular, comminuted fracture of the distal left radius with mild anterior dislocation of the fracture fragments. Degenerative changes in the 1st CMC joint. Dictated by Maria Fagan MD @ 06/03/2023 4:42:50 PM (Electronically Signed)
[2023-06-03] MEDS: ONDANSETRON ODT 4 MG TAB PO (15:55)
[2023-06-03] MEDS: OXYCODONE 5 MG TABLET PO (17:43)
--- NOTE | 2023-06-03 18:09 | ED.NURSE ---
Pulse was found on left wrist by doppler. MD notified.
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
--- NOTE | 2023-06-03 18:46 | ED.NURSE ---
removed the wedding ring from finger as needed to cut off and placed in a clean urine cup. given to patient. helped hold arm for orthglass splint on left forearm with Dr. Persaud.
[2023-06-03 18:56] VITALS: PULSE 48; RESP 18; O2SAT 94
[2023-06-03 19:01] VITALS: BP 81/51
--- NOTE | 2023-06-03 19:05 | ED.NURSE ---
notified of low blood pressure (81/55).
--- NOTE | 2023-06-03 19:21 | CRLHL7_ITS ---
For Patients: As a result of the Century Cures Act, medical imaging exams and procedure reports are released immediately into your electronic medical record. You may view this report before your referring provider. If you have questions, please contact your health care provider. INDICATION: Fall with head injury TECHNIQUE: CT head without contrast. COMPARISON: MR brain September 02, 2022, CT head September 01, 2022 FINDINGS: CSF spaces: Within normal limits for age. Brain parenchyma: The kilpatrick-white differentiation is normal. No sign of mass, hemorrhage, or midline shift. Skull base and calvarium: The visualized paranasal sinuses and mastoid air cells demonstrate no acute or significant findings. The visualized orbits are grossly unremarkable. No skull fractures. IMPRESSION: Unremarkable noncontrast head CT. Please note that all CT scans at this facility use dose modulation, iterative reconstruction, and/or weight-based dosing when appropriate to reduce radiation dose to as low as reasonably achievable. Dictated by Maria Fagan MD @ 06/03/2023 8:05:19 PM (Electronically Signed)
--- NOTE | 2023-06-03 19:31 | ED.NURSE ---
pt report given off to RN
[2023-06-03] MEDS: LACTATED RINGERS 1000 ML 1,000 ML IV (19:56)
[2023-06-03 20:28] VITALS: BP 97/60
[2023-06-03 20:32] VITALS: BP 117/98
== END 2023-06-03 20:37 | disposition home or self-care (01) ==
PROVIDERS: Emergency Provider Student in an Organized Health Care Education/Training Program; PCP Family Medicine
DX: R00.1 Bradycardia, unspecified (principal); S52.572A Other intraarticular fracture of lower end of left radius, initial encounter for closed fracture; W01.10XA Fall on same level from slipping, tripping and stumbling with subsequent striking against unspecified object, initial encounter
CPT/HCPCS: 29125; 70450; 73110; 99283; 99284; A9270; J7120

== ENCOUNTER 2023-06-16 07:52 | Day surgery (SDC) | payer MEDICARE, BC, SELFPAY ==
[2023-06-16] MEDS: LACTATED RINGERS 1000 ML 1,000 ML 100 ML IV (08:15)
[2023-06-16 08:37] VITALS: BMI 37.3
[2023-06-16 08:58] VITALS: BP 138/89; PULSE 58; RESP 16; TEMP 36.3; O2SAT 97
[2023-06-16] MEDS: SODIUM CHLORIDE 0.9 % (FLUSH) 10 ML SYRINGE IVF (09:01)
[2023-06-16 10:29] VITALS: BP 141/85; PULSE 55; RESP 16; O2SAT 98
[2023-06-16] MEDS: fentaNYL 100 MCG/2 ML inj IVP (10:30)
[2023-06-16] MEDS: MIDAZOLAM HCL 1 MG/ML inj IVP (10:30)
--- NOTE | 2023-06-16 10:30 | CRLHL7_ITS ---
For Patients: As a result of the Cures Act, medical imaging exams and procedure reports are released immediately into your electronic medical record. You may view this report before your referring provider. If you have questions, please contact your health care provider. Indication: Left Distal Radius ORIF Technique: Three fluoroscopic images of the left wrist. Fluoroscopic time 16.6 seconds. IMPRESSION: Fluoroscopic guidance for ORIF distal radial fracture. Dictated by Toño Grimes MD @ 06/16/2023 1:06:57 PM (Electronically Signed)
[2023-06-16 10:35] VITALS: BP 120/79; PULSE 54; RESP 16; O2SAT 99
--- NOTE | 2023-06-16 10:52 | SUR.PREOP ---
TIME?OUT:?1029 PT/Annita Goldstein RN/Dr. Deny MDA?VERIFICATION?OF?SURGICAL?SITE left arm,?PROCEDURE,?AND?CONSENT OBTAINED?PRIOR?TO?INVASIVE?PROCEDURE.
[2023-06-16] MEDS: CEFAZOLIN 2 GM in 0.9 % SODIUM CHLORIDE Mini-bag 100 ML IVPB (11:00)
--- NOTE | 2023-06-16 11:13 | W.PM.NB ---
Nerve Block Nerve Block Time Seen by Provider: 10:38 Date Seen: 06/16/23 Type of block requested by surgeon for post-operative analgesia: axillary Side: left Time out performed: Yes Verification of patient name: Yes Verification of date of : Yes Site marking: site marked Name of person performing procedure: Deny Continuous monitoring Was continuous monitoring of O2 sat, B/P, property assessment monitor, recorded every 15 minutes?: Yes Procedure Checklist: sterile prep, needles and gloves Ultrasound guided. Images saved: Yes Medications given in 5ml increments after negative aspiration: Ropivicaine %: 0.5 mL: 30 Needle gauge: 22 Patient tolerated procedure well: Yes Additional comments: Needle noted adjacent to nerve Block Charges Block Charge (with Pro Fee): Brachial Plexus Use of Ultrasound Machine for Block: Yes- US Guidance/pain block
--- NOTE | 2023-06-16 11:14 | W.ANESCHARGE ---
Anesthesia Charges Start Date/Time Anesthesia Start Date: 06/16/23 Anesthesia Start Time: 10:46 Stop Date/Time Anesthesia Stop Date: 06/16/23 Anesthesia Stop Time: 12:43
--- NOTE | 2023-06-16 12:15 | PM.ORPRC ---
Procedure Note Date of procedure: 06/16/23 Procedure: PREOPERATIVE DIAGNOSES: 1. Left distal radius fracture intraarticular with comminution and dorsal angulation/displacement - unstable; 3+ part fracture POSTOPERATIVE DIAGNOSES: 1. Left distal radius fracture intraarticular with comminution and dorsal angulation/displacement - unstable; 3+ part fracture NAME OF OPERATION: 1. Left distal radius open reduction with internal fixation of intraarticular fracture (3+ parts) SURGEON: Ahmet Munoz MD MUSIC STORE MANAGER: Katalina Parra PA-C - Of note, an child welfare assistant was critical for this case to aide in patient positioning, limb manipulation, tissue retraction, closure, and splinting. ANESTHESIA: Supraclavicular block EBL: 50 mL IMPLANTS: Synthes dual column volar locking plate with 2.4 mm diaphyseal locking screws and distal locking pegs. TOURNIQUET: 52 minutes at 250 torr. INDICATIONS: The patient is a pleasant, 67-year-old female who sustained a left wrist injury after a fall. They had difficulty with use of the extremity and deformity. Workup included xrays which revealed an unstable fracture. Given these findings, surgery was recommended to stablize the fracture. FINDINGS: Closed, comminuted, intra-articular, 3+ part displaced, impacted distal radius fracture. PROCEDURE: Following a thorough discussion of risks, benefits, and alternatives, consent was obtained and the operative extremity was marked. The patient was brought to the operating room and placed supine on the operating table. Induction of anesthesia was achieved. Appropriate time out was performed identifying proper patient, site and procedure. 2 g IV Ancef was administered within 1 hour of incision preoperatively. The left upper extremity was prepped and draped in the appropriate sterile fashion using ChloraPrep prep. The limb was exsanguinated and the tourniquet inflated. A longitudinal incision was made overlying the FCR tendon. Sharp incision through skin and subcutaneous tissue allowed identification of the FCR tendon. The superficial sheath was sharply divided, the tendon retracted ulnarly, and the deep fascial sheath also released. The FPL was retracted ulnarly and the pronator quadratus was sharply released from the radial border of the radius and subperiosteally elevated. The fracture was encountered and cleared of interposed periosteum / fracture hematoma. A reduction was performed and the appropriate plate selected. Temporary stabilization allowed C-arm fluoroscopy to confirm proper fracture reduction and plate positioning. The oblong hole was filled with a nonlocking screw followed by multiple distal locking pegs being careful to keep these in subchondral bone and extraarticular. Finally, the remaining proximal shaft screws were drilled and placed. Fluoroscopic imaging confirmed the improved position and showed the fracture to be stable. At this stage, the wound was thoroughly irrigated with normal saline. Closure performed with 0 Vicryl for the pronator quadratus, followed by deflation of the tourniquet. All major bleeding points were cauterized. Closure was then completed with 3-0 Vicryl for the subcutaneous, and 4-0 statafix for subcuticular closure. Dressings were applied along with a volar/dorsal splint. The patient was awoken from anesthesia and transferred to PACU in stable condition. PLAN: 1. Elevate operative extremity. 2. Ice, acetominphen or ibuprofen PRN. 3. Oxycodone for pain as needed. 4. Follow up with PA visit in 10-16 days for wound check and splint removal. Reapply cast. Immobilization should be for 3 weeks total postop. May return at the 3 week jaxson for cast removal and brace application with occupational therapy to follow. Follow-up with me at around the 6 week jaxson postop
[2023-06-16 12:40] VITALS: BP 132/90; PULSE 55; RESP 16; TEMP 36.2; O2SAT 96
--- NOTE | 2023-06-16 12:44 | W.ANESCHARGE ---
Anesthesia Charges Start Date/Time Anesthesia Start Date: 06/16/23 Anesthesia Start Time: 10:46 Stop Date/Time Anesthesia Stop Date: 06/16/23 Anesthesia Stop Time: 12:43
[2023-06-16 12:45] VITALS: BP 128/90; PULSE 53; RESP 16; O2SAT 96
[2023-06-16 13:00] VITALS: BP 136/91; PULSE 55; RESP 16; O2SAT 95
== END 2023-06-16 13:51 | disposition home or self-care (01) ==
PROVIDERS: PCP Family Medicine; Visit Provider Orthopaedic Surgery Sports Medicine
PROC: (CPT 25575; principal; 2023-06-16 10:30)
DX: S52.572A Other intraarticular fracture of lower end of left radius, initial encounter for closed fracture (principal); G89.18 Other acute postprocedural pain
CPT/HCPCS: 25609; 01830; 64415; 73110; 76942; A4580; C1713; J0690; J1100; J1885; J2250; J2405; J2704; J3010; J7120

== ENCOUNTER 2023-07-15 13:22 | Outpatient (RCR) | payer MEDICARE, BC, SELFPAY ==
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
== END 2023-07-23 13:06 | disposition home or self-care (01) ==
PROVIDERS: PCP Family Medicine; Visit Provider Physician Assistant Surgical
DX: Z98.890 Other specified postprocedural states (principal); Z51.89 Encounter for other specified aftercare
CPT/HCPCS: 97110; 97165; X5282